=== PATIENT | female | born 1980 | race Caucasian/White ===

== ENCOUNTER 2016-12-13 12:47 | Outpatient (CLI) | payer BC ==
[2016-12-13] MEDS ORDERED: IOHEXOL 50 ML IV ONE (13:14)
== END 2016-12-13 19:24 | disposition home or self-care (01) ==
LOC: SRD 12:47
PROVIDERS: ATTEND Specialist
DX: N97.9 Female infertility, unspecified (principal)
CPT/HCPCS: 74740; C1751; Q9967

== ENCOUNTER 2017-03-12 15:07 | Outpatient (CLI) | payer BC | END 2017-03-12 20:27 | disposition home or self-care (01) | LOC: SUS 15:07 | PROVIDERS: ATTEND Specialist | DX: O34.81 Maternal care for other abnormalities of pelvic organs, first trimester (principal); N83.201 Unspecified ovarian cyst, right side; N83.202 Unspecified ovarian cyst, left side; Z3A.01 Less than 8 weeks gestation of pregnancy | CPT/HCPCS: 76801; 76817 ==

== ENCOUNTER 2017-03-21 18:26 | Inpatient (IN) | payer BC ==
[~2017-03-21] VITALS: Ht 160 cm; Wt 75.3 kg
--- NOTE | 2017-03-21 18:26 | NUR ---
BROUGHT BACK TO BED #7 AND TRIAGED, REPORT GIVEN TO RICK. CALLED DR OWENS TO BEDSIDE FOR EVALUATION
--- NOTE | 2017-03-21 18:32 | NUR ---
Dr. Verdugo at bedside for evaluation
[2017-03-21 18:37] VITALS: BP_SYST 159
[2017-03-21 18:59] LABS: HEMATOCRIT 43.2 % (36-48); MEAN CORPUSCULAR HEMOGLOBIN 29 pg (27-31); MEAN CORPUSCULAR HGB CONC 32 % (32-36); MEAN CORPUSCULAR VOLUME 88 fL (79.0-98.0); PLATELET COUNT (AUTO) 460 K/uL (130-430); RED BLOOD CELL COUNT(AUTO) 4.91 MIL/uL (4.2-6.2); WHITE BLOOD COUNT (AUTO) 19.8 K/uL (4.8-10.8)
--- NOTE | 2017-03-21 19:16 | NUR ---
report given to night stocker Perry BRAUN
[2017-03-21 19:26] LABS: ATYPICAL LYMPHOCYTES % 6 % (0-0); BAND % (MANUAL) 8 % (0-6); EOSINOPHILS % (MANUAL) 0 % (0-7); LYMPHOCYTES % (MANUAL) 7 % (20-46); MONOCYTES % (MANUAL) 4 % (0-11)
[2017-03-21 19:27] LABS: BASOPHILS % (MANUAL) 0 % (0-2)
[2017-03-21 19:40] LABS: CALCIUM 9.5 mg/dL (8.4-11.0); CREATININE 0.67 mg/dL (0.55-1.30); POTASSIUM 3.6 mmol/L (3.5-5.1)
[2017-03-21 19:43] LABS: INR 0.9 (0.8-1.2)
[2017-03-21 20:06] LABS: ALBUMIN 3.3 g/dL (3.4-4.8); TOTAL BILIRUBIN 0.3 mg/dL (0.0-1.0)
[2017-03-21] MEDS ORDERED: ONDANSETRON HCL 4 MG/2 ML VIAL IVP PRN (20:30)
[2017-03-21] MEDS ORDERED: HYDROmorphone 1 MG INJ. 1 MG/ML AMPUL IVP PRN (20:30)
--- NOTE | 2017-03-21 20:30 | NUR ---
Report received from KADE Amador.
--- NOTE | 2017-03-21 20:30 | NUR ---
Patient AAO x4, sitting in bed, no acute distress noted. Patient came in with c/o Left lower quadrant pain 10/10 "all day". Pain scale at this time 3/10. Patient able to ambulate and communicate needs. Vital signs stable. Will continue to monitor.
--- NOTE | 2017-03-21 20:35 | NUR ---
Patient will be admitted to care of Dr. Hoffman. Admitted to MS unit. Will stay in ED waiting for OR team arrival. Belongings going home with patient father. Summary report printed. Report will be given at bedside.
--- NOTE | 2017-03-21 20:56 | NUR ---
Patient father at bedside. Patient AAO x4, mildly anxious, vital signs stable. Will continue to monitor. All belongins going home with father.
--- NOTE | 2017-03-21 21:00 | NUR ---
Patient resting quietly. No acute distress noted. Vital signs within normal range.
--- NOTE | 2017-03-21 21:55 | NUR ---
Called beam house inspector, OR has not arrived for patient at this time. engineering design supervisor relayed that OR has gone home for the night per Dr. Hoffman. [facility] called for bed placement.
--- NOTE | 2017-03-21 22:09 | NUR ---
ADMIT NOTE Received pt from ER to the floor with a diagnosis of POSSIBLE UTERINE AND LEFT OVARIAN TORSION. Admission process initiated. patient oriented to pain management, safety and call light-teach back done.
--- NOTE | 2017-03-21 22:10 | NUR ---
Patient will be admitted to care of Dr. Hoffman. Admitted to MS unit. Will go to room 122. Belongings going home with father. Summary report printed. Report will be given at bedside.
[2017-03-21 22:22] VITALS: BP_SYST 142
[2017-03-21] MEDS ORDERED: ASPI81TA2 PO (22:26)
[2017-03-21] MEDS ORDERED: PROG100C4 VG (22:26)
[2017-03-21] MEDS ORDERED: PRED5TAB PO (22:26)
--- NOTE | 2017-03-21 22:40 | NUR ---
ADMITION; RECEIVED PT FROM ER VIA GURNEY TO ROOM 122A AT 2210. PT IS IN BED, A/A/O X4. NO ACUTE DISTRESS NOTED. VITAL SIGNS STABLE, AFEBRILE. ORIENTED PT TO ROOM AND CALL LIGHT. PT VERBALIZED UNDERSTANDING. IV TO THE LEFT FOREARM, GAUGE 18. ORDERED IVF STARTED ON PT. INFORMED PT THAT SHE IS NPO, SHE CAN NOT EAT ANYTHING BY HER MOUTH DUE TO POSSIBLE SURGERY IN AM. PT VERBALIZED UNDERSTANDING. DENIES ANY PAIN AT THIS TIME. ALL BELONGINGS SENT HOME WITH PT FATHER. BED LOCKED AND IN LOW POSITION, SIDE RAILS UP X3, BED ALARM ON. CALL LIGHT WITHIN REACH. WILL CONTINUE TO MONITOR.
[2017-03-21] MEDS: D5/0.45 NS 1,000 ML IV SCH (22:43)
[2017-03-21] MEDS: HYDROmorphone 1 MG INJ. 1 MG/ML AMPUL IVP PRN (23:13)
--- NOTE | 2017-03-22 | NUR ---
NOTES; PT APPEARED TO BE SLEEPING, EYES CLOSED. RESPIRATION EVEN AND NONLABORED. SAFETY MEASURES IN PROGRESS.
--- NOTE | 2017-03-22 01:22 | NUR ---
Notes; Pt c/o 5/10 abdominal pain. Scheduled pain medication not due to be given. called and notified. New order of Dilaudid 1mg ivp x1 received. Rn covering informed.
[2017-03-22] MEDS ORDERED: HYDROmorphone 1 MG INJ. 1 MG/ML AMPUL IVP ONE (01:30)
--- NOTE | 2017-03-22 01:46 | NUR ---
NOTES; DILAUDID 1MG IV ADMINISTERED BY MILAN BRAUN, FOR 6/10 ABD PAIN. WILL CONTINUE TO MONITOR.
--- NOTE | 2017-03-22 02:16 | NUR ---
NOTES; PT STATED EFFECTIVE PAIN MEDICATION.
[2017-03-22 03:47] VITALS: BP_SYST 100
--- NOTE | 2017-03-22 04:15 | NUR ---
NOTES; PT APPEARED TO BE SLEEPING, EYES CLOSED. RESPIRATION EVEN AND NONLABORED. SAFETY MEASURES IN PROGRESS.
[2017-03-22] MEDS: HYDROmorphone 1 MG INJ. 1 MG/ML AMPUL IVP PRN (06:44)
[2017-03-22] MEDS: D5/0.45 NS 1,000 ML IV SCH ×2 (06:48→13:30)
--- NOTE | 2017-03-22 06:58 | NUR ---
NOTES; PT C/O 01/04 ABD PAIN. RN COVERING MEDICATED. ALL NEEDS ATTENDED. SAFETY MEASURES MAINTAINED.
[2017-03-22 07:35] VITALS: BP_SYST 119
--- NOTE | 2017-03-22 07:35 | NUR ---
AM ROUNDS: Alert and oriented. Pain level is 4/6 on the left lower quadrant, patient states pain is constant. Call light within reach. Encouraged patient to inform nurse when pain gets untolerable. Patient verbalized understanding.
--- NOTE | 2017-03-22 09:22 | NUR ---
OR: Transported to surgery. CHG done.
--- NOTE | 2017-03-22 09:31 | NUR ---
Nutrition Update Tyler Scale 17 noted. Pt admitted for possible intrauterine , L ovarian torsion. Diet: NPO BMI: 29.4 kg/m2 RD to follow per nutrition care standards. Addendum: 03/22/17 at [address] PLEASE DISREGARD NOTE. DONE IN ERROR.
[2017-03-22 09:45] LABS: BILIRUBIN,URINE NEGATIVE (NEGATIVE); BLOOD, URINE TRACE (NEGATIVE); CLARITY/URINE HAZY (CLEAR); COLOR,URINE YELLOW (YELLOW); GLUCOSE,URINE NEGATIVE (NEGATIVE); KETONES,URINE NEGATIVE (NEGATIVE); LEUKOCYTE ESTERASE ,URINE 3+ (NEGATIVE); NITRITE, URINE NEGATIVE (NEGATIVE); PH,URINE 6.5 (5.0-8.0); PROTEIN URINE TRACE (NEGATIVE); UROBILINOGEN,URINE 0.2 (0.2-1.0)
[2017-03-22 09:59] LABS: BACTERIA,URINE MANY /HPF (None Seen); RBC,URINE 0-3 /HPF (0-3)
[2017-03-22 10:00] LABS: MUCUS,URINE None Seen /LPF (None Seen)
[2017-03-22] MEDS ORDERED: LR 1,000 ML IV SCH (10:20)
[2017-03-22] MEDS ORDERED: MEPERIDINE HCL/PF 25 MG/ML DISP.SYRIN IVP PRN ×2 (10:30)
[2017-03-22] MEDS ORDERED: HYDROmorphone 1 MG INJ. 1 MG/ML AMPUL IVP PRN ×2 (10:30→11:30)
[2017-03-22] MEDS ORDERED: HYDROmorphone 2 MG/ML VIAL IVP PRN ×2 (10:30)
[2017-03-22] MEDS ORDERED: ONDANSETRON HCL 4 MG/2 ML VIAL IVP PRN (11:30)
[2017-03-22] MEDS ORDERED: HYDROcodone/ACETAMIN 5-325 MG TAB (NORCO/ VICODIN) PO PRN (11:30)
[2017-03-22] MEDS ORDERED: OXYCODONE/ACETAMINOPHEN 5-325 TABLET PO PRN ×2 (11:30)
[2017-03-22] MEDS ORDERED: PROGESTERONE 50 MG/ML IM SCH (12:00)
[2017-03-22 12:09] VITALS: BP_SYST 119
[2017-03-22 12:30] VITALS: BP_SYST 117
--- NOTE | 2017-03-22 12:46 | NUR ---
BACK FROM OR @ 12.25: PATIENT IS BACK FROM SURGERY VIA A BED. SHE IS ALERT, ORIENTED X4, STATES JUST HAVING SORE AT THE INCISION SITE. FAMILY ARE AT BEDSIDE. WILL CONTINUE MONITOR.
[2017-03-22] MEDS ORDERED: ceFAZolin SODIUM 1 GM in D5W 50 ML IV SCH (14:00)
[2017-03-22] MEDS: SIMETHICONE 80 MG TAB.CHEW PO SCH ×2 (14:27→17:28)
--- NOTE | 2017-03-22 14:31 | NUR ---
Rounds: Denies pain at this time. Tolerated lunch.
--- NOTE | 2017-03-22 17:00 | NUR ---
Rounds: Patient is talking to Dr. Hoffman on the phone about the outcome of surgery and home meds.
[2017-03-22 17:14] VITALS: BP_SYST 98
--- NOTE | 2017-03-22 18:45 | NUR ---
Discharge: Spoke with alicia Maldonado to discharge patient home, continue home meds and may take tylenol 650 mg PO every 4 hours as needed for pain. Patient verbalized understanding.
--- NOTE | 2017-03-22 20:03 | NUR ---
NOTES PATIENT DISCHARGED HOME ORDERED WITH STABLE VITAL SIGNS. DENIES ANY PAIN AND DISCOMFORT AT THIS TIME. DISCHARGE INSTRUCTIONS, INVENTORY OF BELONGINGS ARE ALREADY DONE BY A.M. SHIFT NURSE. PATIENT WHEELED TO THE THEIR PRIVATE CAR OUTSIDE VIA WHEELCHAIR WITH HER . ALL NEEDS MET.
== END 2017-03-22 20:03 | disposition home or self-care (01) | DRG 782 ==
LOC: SED 18:26 → SMU 20:26
PROVIDERS: ADMIT Specialist; ATTEND Specialist
PROC: 0UT14ZZ Resection of Left Ovary, Percutaneous Endoscopic Approach (ICD-10-PCS; 2017-03-22)
PROC: 0U904ZZ Drainage of Right Ovary, Percutaneous Endoscopic Approach (ICD-10-PCS; 2017-03-22)
PROC: 0UT64ZZ Resection of Left Fallopian Tube, Percutaneous Endoscopic Approach (ICD-10-PCS; principal; 2017-03-22 09:45)
DX: O34.81 Maternal care for other abnormalities of pelvic organs, first trimester (principal); N83.53 Torsion of ovary, ovarian pedicle and fallopian tube; Z3A.01 Less than 8 weeks gestation of pregnancy; N83.201 Unspecified ovarian cyst, right side; N85.2 Hypertrophy of uterus; N83.8 Other noninflammatory disorders of ovary, fallopian tube and broad ligament
CPT/HCPCS: 36415; 76801; 76817; 80053; 81000-TC; 84702-TC; 85007; 85027; 85610-TC; 85730-TC; 86886; 86900; 86901; 87081; 88305; 99285; C1727; J0690; J1170; J7060

== ENCOUNTER 2017-04-16 08:09 | Day surgery (SDC) | payer BC ==
[~2017-04-16] VITALS: Ht 160 cm; Wt 75.7 kg
[~2017-04-16 08:09] MED LIST: ASPI81TA2 PO; PRED5TAB PO; PROG100C4 VG
[2017-04-16] MEDS ORDERED: CEFAZOLIN SOD 1 GM/ ISO 50 ML PREMIX IV ONE (08:45)
[2017-04-16 09:19] LABS: BASOPHILS % (AUTO) 0.6 % (0.0-2.0); EOSINOPHILS # (AUTO) 0.2 K/uL (0.0-0.4); EOSINOPHILS % (AUTO) 1.9 % (0.0-4.0); HEMATOCRIT 36.7 % (36-48); HEMOGLOBIN 12.4 g/dL (12.0-16.0); LYMPHOCYTES # (AUTO) 1.7 K/uL (1.0-5.5); LYMPHOCYTES % (AUTO) 20.5 % (20.5-51.5); MEAN CORPUSCULAR HEMOGLOBIN 30 pg (27-31); MEAN CORPUSCULAR HGB CONC 34 % (32-36); MEAN CORPUSCULAR VOLUME 88 fL (79.0-98.0); MONOCYTES # (AUTO) 0.6 K/uL (0.0-1.0); MONOCYTES % (AUTO) 7.8 % (1.7-9.3); NEUTROPHILS # (AUTO) 5.8 K/uL (1.8-7.7); NEUTROPHILS % (AUTO) 69.2 % (40.0-70.0); PLATELET COUNT (AUTO) 322 K/uL (130-430); RED BLOOD CELL COUNT(AUTO) 4.17 MIL/uL (4.2-6.2); RED CELL DISTRIBUTION WIDTH 12.3 % (9.0-15.0); WHITE BLOOD COUNT (AUTO) 8.3 K/uL (4.8-10.8)
[2017-04-16] MEDS ORDERED: LR 1,000 ML IV SCH (09:32)
[2017-04-16] MEDS ORDERED: HYDROmorphone 2 MG/ML VIAL IVP PRN ×2 (09:45)
[2017-04-16] MEDS ORDERED: ONDANSETRON HCL 4 MG/2 ML VIAL IVP PRN ×2 (09:45→10:00)
[2017-04-16] MEDS ORDERED: HYDROmorphone 1 MG INJ. 1 MG/ML AMPUL IVP PRN (09:45)
[2017-04-16] MEDS ORDERED: MEPERIDINE HCL/PF 25 MG/ML DISP.SYRIN IVP PRN ×2 (09:45)
[2017-04-16] MEDS ORDERED: HYDROcodone/ACETAMIN 5-325 MG TAB (NORCO/ VICODIN) PO PRN (10:00)
[2017-04-16] MEDS ORDERED: OXYCODONE/ACETAMINOPHEN 5-325 TABLET PO PRN (10:00)
[2017-04-16 12:17] VITALS: BP_SYST 120
== END 2017-04-16 11:10 | disposition home or self-care (01) ==
LOC: SDS 08:09 → SMU 08:13 → SDS 11:10
PROVIDERS: ATTEND Specialist
DX: O03.9 Complete or unspecified spontaneous abortion without complication (principal); Z98.890 Other specified postprocedural states; I73.9 Peripheral vascular disease, unspecified
CPT/HCPCS: 36415; 59812; 85025; 88305; J0690; J7120; 88307

== ENCOUNTER 2018-06-20 20:10 | Inpatient (IN) | payer BC ==
[~2018-06-20] VITALS: Ht 160 cm; Wt 85.3 kg
[~2018-06-20 20:10] MED LIST changes: +ASPI-1155 PO; -ASPI81TA2 PO; +MINERAL OIL 30 ML UDC PO ONE; +NALOXONE HCL 0.4 MG/ML AMP (NARCAN) IVP ONE; +PROG100C15 VG; -PROG100C4 VG
[2018-06-20] MEDS ORDERED: OXYTOCIN/0.9 % SODIUM CHLORIDE 1,000 ML IV SCH (20:30)
[2018-06-20] MEDS ORDERED: LR 1,000 ML IV ONE (20:30)
[2018-06-20] MEDS ORDERED: TERBUTALINE SULFATE 1 MG/ML VIAL SUBCUT ONE (20:30)
[2018-06-20] MEDS ORDERED: NALBUPHINE HCL 10 MG/ML AMP IVP PRN (20:30)
[2018-06-20] MEDS: LR 1,000 ML IV SCH (20:40)
[2018-06-20 21:25] VITALS: BP_SYST 139
[2018-06-20 21:44] LABS: BASOPHILS % (AUTO) 0.3 % (0.0-2.0); EOSINOPHILS # (AUTO) 0.1 K/uL (0.0-0.4); EOSINOPHILS % (AUTO) 0.7 % (0.0-4.0); HEMATOCRIT 35.5 % (36-48); HEMOGLOBIN 11.5 g/dL (12.0-16.0); LYMPHOCYTES # (AUTO) 1.3 K/uL (1.0-5.5); LYMPHOCYTES % (AUTO) 13.6 % (20.5-51.5); MEAN CORPUSCULAR HEMOGLOBIN 28 pg (27-31); MEAN CORPUSCULAR HGB CONC 33 % (32-36); MEAN CORPUSCULAR VOLUME 85 fL (79.0-98.0); MONOCYTES # (AUTO) 0.7 K/uL (0.0-1.0); MONOCYTES % (AUTO) 7.8 % (1.7-9.3); NEUTROPHILS # (AUTO) 7.4 K/uL (1.8-7.7); NEUTROPHILS % (AUTO) 77.6 % (40.0-70.0); PLATELET COUNT (AUTO) 348 K/uL (130-430); RED BLOOD CELL COUNT(AUTO) 4.19 MIL/uL (4.2-6.2); RED CELL DISTRIBUTION WIDTH 14.5 % (9.0-15.0); WHITE BLOOD COUNT (AUTO) 9.5 K/uL (4.8-10.8)
[2018-06-21] MEDS: LR 1,000 ML IV SCH ×2 (00:17→01:34)
[2018-06-21] MEDS ORDERED: fentaNYL CITRATE/PF 100 MCG/2 ML AMP ONE (00:37)
[2018-06-21] MEDS ORDERED: ROPIVACAINE 0.2% 100 ML ONE ×2 (00:37→06:46)
[2018-06-21] MEDS ORDERED: LR 500 ML IV ONE (00:57)
[2018-06-21] MEDS ORDERED: FENT2mCg/mL-ROPIVA0.2%/NS EPID 150 ML EP SCH (01:00)
[2018-06-21] MEDS ORDERED: OXYTOCIN/0.9 % SODIUM CHLORIDE 1,000 ML IV ONE (11:38)
[2018-06-21] MEDS ORDERED: OXYTOCIN/0.9 % SODIUM CHLORIDE 1,000 ML IV SCH (11:38)
[2018-06-21] MEDS ORDERED: OXYCODONE/ACETAMINOPHEN 5-325 TABLET PO PRN (11:45)
[2018-06-21] MEDS ORDERED: HYDROcodone/ACETAMIN 5-325 MG TAB (NORCO/ VICODIN) PO PRN (11:45)
[2018-06-21] MEDS ORDERED: DOCUSATE SODIUM 100 MG CAPSULE PO PRN (11:45)
[2018-06-21] MEDS ORDERED: DERMOPLAST SPRAY TP PRN (11:45)
[2018-06-21] MEDS ORDERED: MEASLES,MUMPS&RUBELLA VACC/PF 12500 UNIT/0.5 ML VIAL SUBQ PRN (11:45)
[2018-06-21] MEDS ORDERED: RHO(D) IMMUNE GLOBULIN/MALTOSE 1500 UNITS/1.3 ML (WINHRO) IM PRN (11:45)
[2018-06-21] MEDS ORDERED: HYDROCORTISONE 0.5%, 28.35 GM TOPICAL CREAM TP PRN (11:45)
[2018-06-21] MEDS ORDERED: ANUSOL 1 EA SUPP.RECT (PREPARATION H) RC PRN (11:45)
[2018-06-21] MEDS ORDERED: DIPH-TET-PERTUS Vaccine 0.5 ML VIAL (ADACEL) I.M. PRN (11:45)
[2018-06-21] MEDS ORDERED: WITCH HAZEL LEAF 1 MED.PAD MED.PAD TP PRN (11:45)
[2018-06-21] MEDS ORDERED: LANOLIN 7 GM OINT. TP PRN (11:45)
[2018-06-21] MEDS ORDERED: SENNOSIDES/DOCUSATE SODIUM 1 TAB TABLET(SENOKOT-S) PO PRN (11:45)
[2018-06-21] MEDS ORDERED: METHYLERGONOVINE MALEATE 0.2 MG TABLET PO PRN (11:45)
[2018-06-21] MEDS ORDERED: IBUPROFEN 600 MG TABLET ONE (11:47)
[2018-06-21] MEDS: OXYCODONE/ACETAMINOPHEN 5-325 TABLET PO PRN ×2 (13:07→19:11)
[2018-06-21] MEDS: IBUPROFEN 600 MG TABLET PO SCH ×2 (17:34→23:58)
[2018-06-21] MEDS ORDERED: TEMAZEPAM 15 MG CAPSULE PO PRN (21:00)
[2018-06-22] MEDS: IBUPROFEN 600 MG TABLET PO SCH (05:44)
[2018-06-22 07:12] LABS: BASOPHILS % (AUTO) 0.5 % (0.0-2.0); EOSINOPHILS # (AUTO) 0.2 K/uL (0.0-0.4); EOSINOPHILS % (AUTO) 2.6 % (0.0-4.0); HEMATOCRIT 33.4 % (36-48); HEMOGLOBIN 10.8 g/dL (12.0-16.0); LYMPHOCYTES # (AUTO) 1.4 K/uL (1.0-5.5); MEAN CORPUSCULAR HEMOGLOBIN 27 pg (27-31); MEAN CORPUSCULAR HGB CONC 33 % (32-36); MEAN CORPUSCULAR VOLUME 85 fL (79.0-98.0); MONOCYTES # (AUTO) 0.9 K/uL (0.0-1.0); MONOCYTES % (AUTO) 9.6 % (1.7-9.3); NEUTROPHILS # (AUTO) 6.4 K/uL (1.8-7.7); NEUTROPHILS % (AUTO) 71.3 % (40.0-70.0); PLATELET COUNT (AUTO) 269 K/uL (130-430); RED BLOOD CELL COUNT(AUTO) 3.95 MIL/uL (4.2-6.2); RED CELL DISTRIBUTION WIDTH 15.4 % (9.0-15.0); WHITE BLOOD COUNT (AUTO) 8.9 K/uL (4.8-10.8)
== END 2018-06-22 10:50 | disposition home or self-care (01) | DRG 807 ==
LOC: SPU 20:10
PROVIDERS: ADMIT Specialist; ATTEND Specialist
PROC: 0HQ9XZZ Repair Perineum Skin, External Approach (ICD-10-PCS; principal; 2018-06-21)
PROC: 10E0XZZ Delivery of Products of Conception, External Approach (ICD-10-PCS; 2018-06-21)
PROC: 3E0R3BZ Introduction of Anesthetic Agent into Spinal Canal, Percutaneous Approach (ICD-10-PCS; 2018-06-21)
PROC: 00HU33Z Insertion of Infusion Device into Spinal Canal, Percutaneous Approach (ICD-10-PCS; 2018-06-21)
DX: O69.81X0 Labor and delivery complicated by cord around neck, without compression, not applicable or unspecified (principal); Z37.0 Single live birth; O70.0 First degree perineal laceration during delivery; Z3A.00 Weeks of gestation of pregnancy not specified
CPT/HCPCS: 36415; 81002-TC; 85025; 86592; 86886; 86900; 86901; 94760; J2310; J2590; J2795; J3010; J7120

== ENCOUNTER 2020-03-11 14:19 | Observation (INO) | payer BC ==
[~2020-03-11] VITALS: Ht 160 cm; Wt 91.2 kg
[~2020-03-11 14:19] MED LIST changes: -MINERAL OIL 30 ML UDC PO ONE; -NALOXONE HCL 0.4 MG/ML AMP (NARCAN) IVP ONE
== END 2020-03-11 15:25 | disposition home or self-care (01) ==
LOC: SPU 14:19
PROVIDERS: ADMIT Specialist; ATTEND Specialist
DX: O09.523 Supervision of elderly multigravida, third trimester (principal); Z3A.38 38 weeks gestation of pregnancy
CPT/HCPCS: G0378

== ENCOUNTER 2020-03-17 16:22 | Observation (INO) | payer BC | END 2020-03-17 18:10 | disposition home or self-care (01) | LOC: SPU 16:22 | PROVIDERS: ADMIT Specialist; ATTEND Specialist | DX: Z34.83 Encounter for supervision of other normal pregnancy, third trimester (principal); Z20.828 Contact with and (suspected) exposure to other viral communicable diseases; Z3A.39 39 weeks gestation of pregnancy | CPT/HCPCS: G0378; U0003 ==

== ENCOUNTER 2022-11-26 10:33 | Day surgery (SDC) | payer BC ==
[~2022-11-26] VITALS: Ht 160 cm; Wt 82.1 kg
[~2022-11-26 10:33] MED LIST changes: -PROG100C15 VG; +[UNRECOGNIZED DRUG - CODE] VG
[2022-11-26 11:59] LABS: CREATININE 0.34 mg/dL (0.55-1.30)
[2022-11-26 12:04] LABS: CALCIUM 5.8 mg/dL (8.4-11.0)
[2022-11-26] MEDS ORDERED: KCL 20 mEq in 100 mL (PREMIX) 100 ML IV ONE ×2 (12:15→14:15)
[2022-11-26 13:20] LABS: BASOPHILS # (AUTO) 0.1 K/uL (0.0-0.2); BASOPHILS % (AUTO) 0.5 % (0.0-2.0); EOSINOPHILS # (AUTO) 0.1 K/uL (0.0-0.4); EOSINOPHILS % (AUTO) 1.3 % (0.0-4.0); HEMATOCRIT 34.6 % (36-48); HEMOGLOBIN 11.9 g/dL (12.0-16.0); LYMPHOCYTES # (AUTO) 1.4 K/uL (1.0-5.5); LYMPHOCYTES % (AUTO) 13.9 % (20.5-51.5); MEAN CORPUSCULAR HEMOGLOBIN 29 pg (27-31); MEAN CORPUSCULAR HGB CONC 34 % (32-36); MEAN CORPUSCULAR VOLUME 84 fL (79.0-98.0); MONOCYTES # (AUTO) 0.6 K/uL (0.0-1.0); MONOCYTES % (AUTO) 5.8 % (1.7-9.3); NEUTROPHILS # (AUTO) 8.1 K/uL (1.8-7.7); NEUTROPHILS % (AUTO) 78.5 % (40.0-70.0); PLATELET COUNT (AUTO) 320 K/uL (130-430); WHITE BLOOD COUNT (AUTO) 10.3 K/uL (4.8-10.8)
[2022-11-26 13:28] LABS: CALCIUM 8.1 mg/dL (8.4-11.0); CREATININE 0.4 mg/dL (0.55-1.30)
[2022-11-26 13:36] LABS: ALBUMIN 2.6 g/dL (3.4-4.8); TOTAL BILIRUBIN 0.6 mg/dL (0.0-1.0)
[2022-11-26] MEDS ORDERED: PROPOFOL 200MG/ 20ML VIAL (DIPRIVAN) IV ONE (13:51)
[2022-11-26] MEDS ORDERED: NS IRRIG SOLN 1000 ML IR ONE (13:51)
[2022-11-26] MEDS ORDERED: SEVOFLURANE 15 MIN GAS INH ONE (13:51)
[2022-11-26] MEDS ORDERED: LR 1,000 ML IV.SOLN IV ONE (13:51)
[2022-11-26] MEDS ORDERED: ceFAZolin SODIUM 2 GM VIAL ONE (13:51)
[2022-11-26] MEDS ORDERED: ONDANSETRON HCL 4 MG/2 ML VIAL ONE (13:51)
[2022-11-26] MEDS ORDERED: OXYTOCIN 10 UNIT/ML VIAL ONE (13:51)
[2022-11-26] MEDS ORDERED: OXYCODONE/ACETAMINOPHEN 5-325 TABLET PO PRN ×2 (14:30)
[2022-11-26] MEDS ORDERED: ONDANSETRON HCL 4 MG/2 ML VIAL IVP PRN (14:30)
[2022-11-26] MEDS ORDERED: HYDROcodone/ACETAMIN 5-325 MG TAB (NORCO/ VICODIN) PO PRN (14:30)
[2022-11-26 16:08] VITALS: BP_SYST 126
== END 2022-11-26 16:00 | disposition home or self-care (01) ==
LOC: SDS 10:33 → SMU 10:34 → SDS 16:00
PROVIDERS: ATTEND Specialist
DX: O02.1 Missed abortion (principal); E87.6 Hypokalemia; Z20.822 Contact with and (suspected) exposure to COVID-19
CPT/HCPCS: 87081; 59820; 80053; 85025; 36415; 93005; 88305; 87426; J2405; J2590; J3480; J2704; J7120; 80048